=== PATIENT | male | born 1970 | race Native Hawaiian/Other Pacific Islander ===

== ENCOUNTER 2019-02-24 10:39 | Outpatient (CLI) | payer BC | END 2019-02-24 22:31 | disposition home or self-care (01) | LOC: LABW 10:39 | DX: R79.89 Other specified abnormal findings of blood chemistry (principal) | CPT/HCPCS: 36415; 85014; 85018; 99195 ==

== ENCOUNTER 2021-03-28 09:31 | Observation (INO) | payer BC ==
[~2021-03-28] VITALS: Ht 172.7 cm; Wt 87.2 kg
[2021-03-28 10:48] LABS: PLATELET COUNT 259 K/uL (142-355)
[2021-03-28 11:01] LABS: POTASSIUM 4.1 mmol/L (3.6-5.2)
[2021-03-28 16:40] VITALS: BP 162/95; TEMP 98.1; Ht 172.7 cm; Wt 87.2 kg
[2021-03-28 20:00] VITALS: BP 160/90; TEMP 97.8
--- NOTE | 2021-03-28 21:34 | NUR ---
[id number] SPOKE TO ONIEL IN PHARMACY REGARDING MD ORDER FOR PHARMACY TO ADJUST ANTIBIOTIC DOSAGE FOR OP INFUSION. OF TOMORROW
--- NOTE | 2021-03-28 21:35 | NUR ---
1700 LT ARM DIAMETER 32 CM DARK AREA AREA 21CM LONG 16.7CM WIDE WITH HARD AREA NOTED JUST BELOW AC AREA THAT MEASURES 6.5CMX 5.3CM THAT IS TENDER TO TOUCH. RT ARM DIAMETER IS 32 CM
[2021-03-29] VITALS: BP 146/80; TEMP 98.5
--- NOTE | 2021-03-29 02:34 | NUR ---
PT HAS HAD DOSE OF ZOSYN. VITAL SIGN WNLS. PT DOES HAVE HISTORY OF HYPERTENTION. NO CHANGES IN PATIENTS ARM. SAME PREVIOUS MEASUREMENTS. PT TO HAVE OUTPUT THERAPY UPON DISCHARGE. PT IS PRESENTLY RESTING WITH EYES CLOSED.
[2021-03-29 04:00] VITALS: BP 131/80; TEMP 97.5
--- NOTE | 2021-03-29 06:42 | NUR ---
PT HAS RESTED WELL THRU THE NIGHT. NO COMPLAINTS VOICED. NO DRAINAGE NOTED FROM ARM.
[2021-03-29 07:14] LABS: PLATELET COUNT 222 K/uL (142-355)
[2021-03-29 08:00] VITALS: BP 143/91; TEMP 98.1
--- NOTE | 2021-03-29 08:23 | NUR ---
PT AWAKE AND ALERT. ROUNDS MADE WITH PCP. PTS LEFT ARM DECREASED REDNESS, DARK DISCOLORATION, DECREASED SWELLING NOTED, SKIN W/D TO TOUCH. PT HAS FULL ROM TO LEFT ARM. PT WILL BE DISCHARGED AT END OF DAY, PENDING X-RAY RESULTS AND UPON COMPLETION OF ANTIBIOTICS. PT DENIES ANY PAIN OR DISCOMFORT. NAD NOTED.
[2021-03-29 12:00] VITALS: BP 150/97; TEMP 97.9
[2021-03-29 16:00] VITALS: BP 145/91; TEMP 97.8
--- NOTE | 2021-03-29 17:06 | NUR ---
PT DISCHARGED HOME PER PCP. DISCHARGE INSTRUCTIONS GIVEN TO PT. PT VERBALIZED UNDERSTANDING. PT HAS SCHEDULED APPOINTMENT WITH INFUSION CLINIC FOR ANTIBIOTIC TX X5 DAYS. IV SITE TO RIGHT FOREARM WITH 20GA REMAINS INTACT FOR INFUSION. IV SITE TO LEFT FOREARM D/C'D R/T INFILTRATION AND PT C/O BURNING AT SITE WHEN IV ANTIBIOTICS INFUSING. PTS SPOUSE PICKED UP PRESCRIPTIONS FROM PCP OFFICE PRIOR TO PTS DISCHARGE. PT HAS LAST DOSE OF ZOSYN IV THAT WAS SCHEDULED AT 1800 PRIOR TO DISCHARGE PER PCP. PT DENIES ANY PAIN/DISCOMFORT. NO SWELLING OR REDNESS NOTED TO LEFT ARM R/T CELLULITIS. PT WILL F/U WITH PCP IN OFFICE AFTER INFUSION O 03/30/21. PT TRANSPORTED OUT OF FACILITY VIA WHEELCHAIR AT 1645.
== END 2021-03-29 16:45 | disposition home or self-care (01) ==
LOC: MED/SURG 09:31
PROVIDERS: ADMIT Internal Medicine; ATTEND Internal Medicine
DX: L03.114 Cellulitis of left upper limb (principal); I10 Essential (primary) hypertension; L02.414 Cutaneous abscess of left upper limb; R91.1 Solitary pulmonary nodule; S50.862A Insect bite (nonvenomous) of left forearm, initial encounter; W57.XXXA Bitten or stung by nonvenomous insect and other nonvenomous arthropods, initial encounter; Y92.89 Other specified places as the place of occurrence of the external cause
CPT/HCPCS: 80053; 85027; 85652; 86140; 87635; 90715; 99220; G0378; G0379; J2543; J3370; U0003

== ENCOUNTER 2021-03-30 08:53 | Outpatient (CLI) | payer BC ==
[~2021-03-30] VITALS: Ht 172.7 cm; Wt 90.4 kg
== END 2021-03-30 20:08 | disposition home or self-care (01) ==
LOC: INF 08:53
PROVIDERS: ATTEND Internal Medicine
DX: L03.114 Cellulitis of left upper limb (principal); L02.414 Cutaneous abscess of left upper limb
CPT/HCPCS: 96365; J3370

== ENCOUNTER 2021-03-31 08:57 | Outpatient (CLI) | payer BC ==
[~2021-03-31] VITALS: Ht 172.7 cm; Wt 90.4 kg
[2021-03-31 10:28] LABS: PLATELET COUNT 240 K/uL (142-355)
[2021-03-31 10:56] LABS: POTASSIUM 4.4 mmol/L (3.6-5.2)
== END 2021-03-31 21:57 | disposition home or self-care (01) ==
LOC: INF 08:57
PROVIDERS: ATTEND Internal Medicine
DX: L03.114 Cellulitis of left upper limb (principal)
CPT/HCPCS: 80053; 85027; 85652; 96365; J3370

== ENCOUNTER 2021-04-01 09:06 | Outpatient (CLI) | payer BC | END 2021-04-01 21:18 | disposition home or self-care (01) | LOC: INF 09:06 | PROVIDERS: ATTEND Internal Medicine | DX: L03.114 Cellulitis of left upper limb (principal); L02.91 Cutaneous abscess, unspecified | CPT/HCPCS: 96365; J3370 ==

== ENCOUNTER 2021-04-02 09:18 | Outpatient (CLI) | payer BC | END 2021-04-02 19:05 | disposition home or self-care (01) | LOC: INF 09:18 | PROVIDERS: ATTEND Internal Medicine | DX: L03.114 Cellulitis of left upper limb (principal); L02.414 Cutaneous abscess of left upper limb | CPT/HCPCS: 36415; 80202; 96365 ==

== ENCOUNTER 2021-07-27 10:01 | Outpatient (CLI) | payer BC | END 2021-07-27 19:24 | disposition home or self-care (01) | LOC: CT 10:01 | PROVIDERS: ATTEND Internal Medicine | DX: R91.1 Solitary pulmonary nodule (principal) | CPT/HCPCS: 36415; 82565; 84520; Q9963 ==

== ENCOUNTER 2022-04-24 07:59 | Outpatient (CLI) | payer BC | END 2022-04-24 20:18 | disposition home or self-care (01) | LOC: CT 07:59 | PROVIDERS: ATTEND Internal Medicine | DX: K42.9 Umbilical hernia without obstruction or gangrene (principal) | CPT/HCPCS: 36415; 82565; 84520; Q9963 ==

== ENCOUNTER 2022-11-19 07:37 | Outpatient (CLI) | payer BC ==
[2022-11-19 08:18] LABS: PLATELET COUNT 358 K/uL (142-355)
[2022-11-19 08:40] LABS: POTASSIUM 4.2 mmol/L (3.6-5.2)
== END 2022-11-19 21:04 | disposition home or self-care (01) ==
LOC: LABW 07:37
PROVIDERS: ATTEND Internal Medicine
DX: M19.90 Unspecified osteoarthritis, unspecified site (principal); M47.816 Spondylosis without myelopathy or radiculopathy, lumbar region
CPT/HCPCS: 36415; 80053; 81374; 84439; 84443; 84550; 85027; 85652; 86038; 86140; 86431

== ENCOUNTER 2022-12-10 08:43 | Outpatient (CLI) | payer BC ==
[2022-12-10 09:55] LABS: PLATELET COUNT 331 K/uL (142-355)
== END 2022-12-10 18:59 | disposition home or self-care (01) ==
LOC: US 08:43
PROVIDERS: ATTEND Internal Medicine
DX: R10.11 Right upper quadrant pain (principal)
CPT/HCPCS: 36415; 80053; 82150; 83690; 85027

== ENCOUNTER 2022-12-13 07:38 | Outpatient (CLI) | payer BC | END 2022-12-13 17:00 | disposition home or self-care (01) | LOC: NM 07:38 | PROVIDERS: ATTEND Internal Medicine | DX: R10.11 Right upper quadrant pain (principal) | CPT/HCPCS: A9537 ==